=== PATIENT | female | born 1975 | race Caucasian/White ===

== ENCOUNTER 2021-04-10 18:00 | Emergency (ER) | payer OTHER ==
[2021-04-10 19:18] LABS: HEMOGLOBIN 14.9 gm/dl (12.3-15.3); RED BLOOD COUNT 4.99 M/UL (4.00-5.10); WHITE BLOOD COUNT 8.6 K/UL (4.5-11.0)
[2021-04-10 19:39] LABS: BUN/CREATININE RATIO 25 (0-10)
== END 2021-04-10 23:07 | disposition home or self-care (01) ==
LOC: ER1 18:00
PROVIDERS: Physician Assistant Medical
DX: R07.9 Chest pain, unspecified (principal); F17.210 Nicotine dependence, cigarettes, uncomplicated
CPT/HCPCS: 71045; 80053; 82550; 82553; 83874; 84484; 85025; 93005; 99285